=== PATIENT | male | born 1965 | race Caucasian/White ===

== ENCOUNTER → 2017-02-21 11:41 | Emergency (ER) | payer OTHER | END | disposition left against medical advice (07) | LOC: UCCORT 11:41 | DX: H05.223 Edema of bilateral orbit (principal); Z53.21 Procedure and treatment not carried out due to patient leaving prior to being seen by health care provider ==

== ENCOUNTER 2023-07-22 10:32 | Observation (INO) ==
[2023-07-23 06:08] LABS: ABS Basophils 0.1 10^3/uL (0.0-0.1); ABS Eosinophils 0.2 10^3/uL (0.0-0.5); ABS Lymphocytes 1.3 10^3/uL (1.0-4.8); ABS Monocytes 0.8 10^3/uL (0.0-1.1); ABS Neutrophils 6.2 10^3/uL (1.5-7.6); ABS Nucleated RBC 0.01 10^3/ul; Eosinophil % 2.3 %; Hematocrit 43.8 % (38-53); Hemoglobin 14.9 g/dL (13.2-16.3); Lymphocyte % 15.3 %; Mean Corpuscular Hemoglobin 30.1 pg (27-33); Mean Corpuscular Hgb Conc 34.1 g/dL (31-36); Mean Corpuscular Volume 88.4 fL (80-97); Nucleated Red Blood Cells % 0.1 %/100WBC (0.0-0.8); Platelet Count 162 10^3/uL (150-450); Red Blood Count 4.95 10^6/uL (4.06-5.63); Red Cell Distribution Width 14.2 % (12-17); White Blood Count 8.6 10^3/uL (3.6-10.2)
[2023-07-23 06:50] LABS: Albumin 3.9 g/dL (3.2-5.2); Albumin/Globulin Ratio 2.1 (1-3); Calcium 8.8 mg/dL (8.6-10.3); Creatinine, Serum 1.06 mg/dL (0.67-1.17); Globulin 1.9 g/dL (2-4); Magnesium 1.9 mg/dL (1.9-2.7); Potassium 3.9 mmol/L (3.5-5.0); Total Protein 5.8 g/dL (6.4-8.9); eGFR CKD-EPI 82.9 (>60)
[2023-07-23] MEDS: Aspirin EC 81 mg TAB.EC (enteric coated) PO SCH (09:28)
[2023-07-23 13:32] VITALS: BP 127/82
== END 2023-07-23 16:52 | disposition home or self-care (01) ==
LOC: ED 10:32 → EDHOLD 10:32 → MEDTELE 19:41
PROVIDERS: ADMIT Internal Medicine; ATTEND Internal Medicine